=== PATIENT | male | born 1965 | race Caucasian/White ===

== ENCOUNTER 2017-06-22 11:14 | Emergency (ER) | payer BC ==
[~2017-06-22] VITALS: Ht 177.8 cm; Wt 99.8 kg
--- NOTE | ~2017-06-22 | CR141 ---
[facility] A Service of [facility] RADIOLOGY TEXT RESULTS PATIENT: ALANNA CASH LOCATION: SED : 61 UNIT #: [id number] AGE: [address]: Justin Peres MD SEX: M ORDER DR: [id number] [place] [id number] MR#: [id number] #: [id number] NAME: ALANNA CASH : 1965 SEX: M STUDY DATE/TIME: 06/22/2017 12:04 UNIT: SED ROOM: STUDY DESCRIPTION: CR Hand Min 3 Views Lt Attending Physician: Justin Peres M.D. Ordering Physician: Justin Peres M.D. Primary Care Physician: Primary Care Physician No MEDICAL IMAGING REPORT This report is preliminary unless electronic signature is present. EXAM Three views left hand INDICATION Foreign body in the nail and the finger associated with pain. Patient shot a nail through his left index and middle fingers. FINDINGS On the AP and oblique views, there is a suggestion of a lucency traversing the middle phalanx of the middle finger which I think reflects a nondisplaced fracture. There is an additional ossific fragment which is seen along the ulnar aspect of the middle phalanx. There is no definite acute fracture or subluxation of the index finger. There is really minimal degenerative change and I do not see a definite radiopaque retained foreign body. IMPRESSION Suspected nondisplaced fracture involving the proximal aspect of the middle phalanx of the middle finger. Tiny ossific density is seen along the ulnar aspect of the middle phalanx which may reflect an avulsion-type injury or ossific fragment. No definite radiopaque retained foreign body is seen and I do not see a definite acute fracture or subluxation of the patient's index finger. Dictated by... Sade Santamaria M.D. THIS IS AN ELECTRONICALLY VERIFIED REPORT Sade Santamaria M.D. at 06/23/2017 4:59 PM AFF/mjs [facility] A Service of [facility] RADIOLOGY TEXT RESULTS PATIENT: ALANNA CASH LOCATION: SED : 61 UNIT #: [id number] AGE: [address]: Justin Peres MD SEX: M ORDER DR: TD: 06/22/2017 13:30 JOB #: [id number] MEDICAL IMAGING REPORT Page 1 of 1
== END 2017-06-22 13:38 | disposition home or self-care (01) ==
LOC: CED 11:14 → SED 11:42
DX: S61.231A Puncture wound without foreign body of left index finger without damage to nail, initial encounter (principal); S61.233A Puncture wound without foreign body of left middle finger without damage to nail, initial encounter; Z23 Encounter for immunization; X58.XXXA Exposure to other specified factors, initial encounter; Y92.098 Other place in other non-institutional residence as the place of occurrence of the external cause
CPT/HCPCS: 29130; 73130; 90471; 90715; 99283